=== PATIENT | female | born 1950 | race Caucasian/White ===

== ENCOUNTER → 2020-08-23 | Day surgery (SDC) | payer MEDICARE, OTHER ==
[~2020-08-23] MED LIST: ASCO500C PO; ASPI-630 PO; ATOR20TA58 PO; CRAN250C PO; DILT180T7 PO; GLIP5TAB10 PO; IPRATRPIUM/ALBUTEROL 0.5/2.5MG 3 ML NEBU. NEB PRN; IV RINGERS SOLUTION,LACTATED 1,000 ML IV SCH; LEVO175T2 PO; LIDOCAINE 2% PF 5 ML VIAL. ONE; LISI-517 PO; METF10007 PO; METO-239 PO; ONDANSETRON PF 4 MG/2 ML VIAL. IV PRN; PROPOFOL 10,000 MCG/ML (20ML) VIAL IV ONE; trulicity
[2020-08-23 09:34] VITALS: BP 145/85
--- NOTE | 2020-08-25 12:07 | PATHOLOGY ---
[facility] Accession Number: [id number] . 01 Material submitted: . colon - ASCENDING COLON POLYP BIOPSY. Modifiers: ascending . 01 Clinical history: . PREVIOUS HISTORY OF POLYPS COLONOSCOPY . 02 Diagnosis: Colon biopsy, ascending colon polyp: - Tubular adenoma. ([facility]; 08/25/2020) [facility] 08/25/2020 0826 Local . 02 Comment: There is no high-grade dysplasia or evidence of malignancy. ([facility]; 08/25/2020) . 02 Electronically signed: . Hayden Clinton MD, Pathologist NPI- [id number] . 01 Gross description: . Received in formalin labeled "Raletz, Varsha, ascending polyp" are multiple lamas-brown soft tissue fragments measuring in aggregate 0.4 x 0.3 x 0.1 cm. The specimen is submitted entirely in A1. ([facility]; 08/24/2020) [facility] 08/24/2020 1136 Local . 02 Pathologist provided ICD-10: D12.2 . 02 CPT . 987764 Specimen Comment: A courtesy copy of this report has been sent to [phone] Specimen Comment: [id number] Specimen Comment: Report sent to / DR STEEL Performed at: 01 [facility] [address], [place] [id number] MD Neno Vega MD Phone: [phone] Performed at: 02 [facility] [address], [place] [id number] MD Hayden Clinton MD Phone: [phone]
== END | disposition home or self-care (01) ==
LOC: SURG 08:02
PROVIDERS: ATTEND Internal Medicine Gastroenterology
DX: Z12.11 Encounter for screening for malignant neoplasm of colon (principal); D12.2 Benign neoplasm of ascending colon; I10 Essential (primary) hypertension; E11.9 Type 2 diabetes mellitus without complications; E07.9 Disorder of thyroid, unspecified; E78.00 Pure hypercholesterolemia, unspecified; Z86.010 Personal history of colon polyps; Z88.5 Allergy status to narcotic agent; Z79.899 Other long term (current) drug therapy; Z79.84 Long term (current) use of oral hypoglycemic drugs; Z72.89 Other problems related to lifestyle; Z87.440 Personal history of urinary (tract) infections
CPT/HCPCS: 45380; 82947; J2001; J2704; J7120